=== PATIENT | female | born 1985 | race Caucasian/White ===

== ENCOUNTER 2023-11-02 18:16 | Emergency (ER) | payer SELFPAY ==
[~2023-11-02] VITALS: Ht 170.2 cm; Wt 73.0 kg
[2023-11-02 18:23] VITALS: BP 110/69; PULSE 72; RESP 16; TEMP 97.8; O2SAT 98
[2023-11-02] MEDS: ONDANSETRON 4MG ODT PO ONE (18:53)
[2023-11-02] MEDS: FAMOTIDINE 20MG TABLET PO ONE (18:53)
== END 2023-11-02 19:31 | disposition home or self-care (01) ==
LOC: ER 18:16
DX: F10.129 Alcohol abuse with intoxication, unspecified (principal); Y90.9 Presence of alcohol in blood, level not specified
CPT/HCPCS: 99283; Q0162